=== PATIENT | female | born 1940 | race Two or more races ===

== ENCOUNTER 2024-07-12 01:19 | Outpatient (OUT) | payer MEDICARE, SELFPAY ==
[2024-07-12 09:47] LABS: Estimated Average Glucose 212 mg/dL
== END 2024-07-12 01:20 | disposition home or self-care (01) ==
PROVIDERS: PCP Family Medicine; Visit Provider Nurse Practitioner Adult Health
DX: E11.9 Type 2 diabetes mellitus without complications (principal)
CPT/HCPCS: 36415; 83036